=== PATIENT | female | born 1995 ===

== ENCOUNTER 2020-04-28 17:58 | Inpatient (IN) | payer OTHER | END 2020-04-28 19:00 | disposition home or self-care (01) | DRG 833 | LOC: OBS 17:58 → BC 18:08 → OBS 18:13 → BC 19:00 | PROVIDERS: ADMIT Nurse Practitioner Obstetrics & Gynecology | DX: O60.02 Preterm labor without delivery, second trimester (principal); Z3A.27 27 weeks gestation of pregnancy | CPT/HCPCS: 81003 ==